=== PATIENT | female | born 1980 | race Caucasian/White ===

== ENCOUNTER → 2017-11-04 | Outpatient (CLI) | payer BC | END | disposition home or self-care (01) | LOC: PCVCIMAG 09:54 | DX: E78.5 Hyperlipidemia, unspecified (principal); J45.909 Unspecified asthma, uncomplicated; R00.0 Tachycardia, unspecified; G40.909 Epilepsy, unspecified, not intractable, without status epilepticus; M79.7 Fibromyalgia | CPT/HCPCS: 93306 ==